=== PATIENT | female | born 1955 | race Caucasian/White ===

== ENCOUNTER 2019-11-24 09:25 | Emergency (ER) | payer BC, SELFPAY ==
[2019-11-24 09:33] VITALS: BP 149/85; PULSE 85; RESP 20; TEMP 36.7; O2SAT 95
--- NOTE | 2019-11-24 09:33 | W.ED.GENAD ---
Discharge Plan Disposition Patient Disposition: HOME Condition: Improving Discharge Details Chief Complaint: Abd Prob Clinical Impression: Cholelithiasis, Colitis Primary Care Provider: Kevin Roche ED Provider: Jany Hartman Home Meds and New Rx's Prescriptions: No Action No Known Home Meds RF: 0 Discharge Instructions Instructions: Biliary Colic (ED), Gallstones (ED), Colitis (ED) Additional Instructions: Drink plenty of fluids and get plenty of rest. Follow a diet of clear liquids and low-fat over the next 24 hours. Follow-up with your scheduled appointment with surgery office on November 27 at 1 PM. Follow-up with your primary care doctor for reevaluation and for referral for outpatient CT abdomen and pelvis in 12 months for reassessment of the right adrenal mass noted incidentally on your CT scan today. Return to the emergency department immediately if you develop any worsening or concerning symptoms such as fever, persistent vomiting, worsening abdominal pain or worsening rectal bleeding. Referrals: Liliana Amin MD [ [facility] STAFF PHYSICIAN] - Discharge Data Discharge Date/Time-TO BE ENTERED AT DEPARTURE: 11/24/19 13:43 Discharge Physician: Jany Hartman Medical Decision Making 0945 -- 64-year-old female with history of biliary colic presents for right upper quadrant abdominal pain and bright red rectal bleeding since this morning. Appears that possibly the bright red rectal bleeding may be unrelated to the right upper quadrant pain. She has significant right upper quadrant tenderness with positive Rowe sign. She appears uncomfortable but nontoxic. Rectal exam negative for any stool and guaiac negative. Differential diagnosis includes biliary colic, cholecystitis, colitis, diverticulitis, appendicitis. Will place an IV, bolus IV fluids, screening labs, CT abdomen pelvis and gallbladder ultrasound give a dose of morphine and Zofran and reassess. 1115 --patient reassessed -she states her pain is improved from 9 to a 6. She was offered additional pain medication but declined. Labs reviewed and unremarkable. Normal white blood cell count and liver enzymes and lipase. Patient has not yet gone to CT or ultrasound. 1300 --CT abdomen and pelvis notes findings possibly c/w colitis as well as gallbladder distension and pericholecystic fluid. US notes gallstones, possibly also in gallbladder neck. Patient reassessed -she states she feels much better. Case discussed with Dr. Amin who stated that patient would likely need elective cholecystectomy and can follow-up with her next week November 27 at 1 PM. Patient feels good to go home. She has had no further bowel movements and denies any dizziness. She was able to ambulate without any acute complaints. Discussed that it is possible that the hamburger she ate could have possibly caused colitis as well as biliary colic. We will send home with a few tabs of oxycodone per her request. She was also notified of the incidental right adrenal mass noted on CT and to follow-up with her PCP in [address] Usual and customary return precautions given prior to discharge. Medical Records Medical records reviewed: Yes I reviewed the patient's medical records. Imaging Data Radiologic Study: Radiologist's impression: US ABDOMEN LIMITED CLINICAL HISTORY: RUQ abd pain, r/o cholelithiasis/cholecystitis TECHNIQUE: Ultrasound performed using standard protocol. COMPARISON: CT CT ABDOMEN PELVIS W from 11/24/2019 FINDINGS: Ultrasound examination was performed utilizing right upper quadrant protocol. There are multiple gallstones. There is a positive sonographic Rowe sign. No gross gallbladder wall thickening or pericholecystic fluid collection seen. Common hepatic duct is of normal diameter at 5 millimeters. There is question of shadowing near the gallbladder neck, although I cannot identify a stone at this site the possibility of a gallbladder neck stone would have to be considered. IMPRESSION: Cholelithiasis is confirmed in patient with reported clinical findings suggesting cholecystitis. CT ABDOMEN PELVIS W CLINICAL HISTORY: RUQ abd pain, bright red rectal bleeding TECHNIQUE: CT examination of the abdomen and pelvis was performed with bolus infusion of 100 cc of Omnipaque 350. COMPARISON: No exams were available for comparison FINDINGS: Images obtained through the lung bases are unremarkable. Hepatic attenuation is heterogeneous. No focal hepatic mass identified although there are multiple small low-attenuation lesions too small to characterize but probably representing cysts. No intra or extrahepatic biliary dilatation. The gallbladder is distended and there is a pericholecystic fluid collection. The patient reportedly has clinically suspected cholecystitis. Pancreas is unremarkable in appearance and the pancreatic duct appears normal. Spleen is unremarkable. The IVC is distended, likely due to Valsalva maneuver. Adrenals are unremarkable except for an incidental 13 millimeter in diameter homogeneous right adrenal lesion measuring about 82 Hounsfield units mean attenuation, this is indeterminate although statistically likely benign. Follow-up abdominal CT suggested in 12 months to re-evaluate the right adrenal gland. Kidneys are unremarkable, no renal mass, hydronephrosis, or nephrolithiasis. Urinary bladder is unremarkable. No significant abdominal wall hernia seen. No significant abdominal or pelvic adenopathy. Appendix is normal. No evidence of diverticulitis. There is diffuse mild probable colonic wall thickening involving portions of transverse and descending colon, please correlate regarding the possibility of colitis, the patient reportedly has had recent rectal bleeding. Animal Nurse structures unremarkable for age. No free fluid in the pelvis IMPRESSION: Gallbladder distention and pericholecystic fluid collection, clinically there is reportedly a suspicion of cholecystitis, additional evaluation with right upper quadrant ultrasound recommended. Question colonic wall thickening involving portions of transverse and descending colon as well as sigmoid, please correlate regarding the possibility of colitis. Incidental adrenal 13 millimeter mass, 82 Hounsfield units mean attenuation, probably benign, follow-up abdominal CT recommended in 12 months. Lab Data Lab results reviewed: Yes I reviewed the patient's lab results. Labs: Laboratory Tests Range/Units 11/24/19 11/24/19 11/24/19 09:51 09:51 09:51 WBC (4.4-10.8) k/cumm 7.02 RBC (4.00-5.20) m/cumm 4.56 Hgb (12.0-15.5) g/dL 14.4 Hct (36.0-46.0) % 43.6 MCV (80-95) fL 95.6 H MCH (27.0-33.0) pg 31.6 MCHC (32.0-36.0) g/dL 33.0 RDW (11.7-14.6) % 12.3 Plt Count (130-400) x1000/uL 221 MPV (8.0-11.0) fL 10.1 Immature Gran % % 0.1 Neutrophils % 74.4 Lymphocytes % 15.2 Monocytes % 8.7 Eosinophils % 1.0 Basophils % 0.6 Absolute Neutrophils (1.2-6.7) k/cumm 5.22 Absolute Lymphocytes (1.2-3.4) k/cumm 1.07 L Absolute Monocytes (0.11-0.7) k/cumm 0.61 Absolute Eosinophils (0.0-0.7) k/cumm 0.07 Absolute Basophils (0.0-0.2) k/cumm 0.04 Sodium (136-145) mmol/L 139 Potassium (3.5-5.1) mmol/L 3.6 Chloride (98-107) mmol/L 104 Carbon Dioxide (21.0-32.0) mmol/L 28.6 Anion Gap (3-11) mmol/L 6.4 BUN (7-18) mg/dL 14 Creatinine (0.55-1.02) mg/dL 0.78 Estimated GFR/1.73 m2 (mL/min/1.73m2) >= 60.00 Glucose (74-106) mg/dL 112 H Calcium (8.5-10.1) mg/dL 9.6 Total Bilirubin (0.2-1.0) mg/dL 0.6 AST (15-37) U/L 15 ALT (14-59) U/L 25 Alkaline Phosphatase (46-116) U/L 63 Total Protein (6.4-8.2) g/dL 7.8 Albumin (3.4-5.0) g/dL 4.5 Lipase (73-393) U/L 123 HPI General Mode of arrival: ambulatory. Date/Time Provider Initiated Documentation: 11/24/19 09:27. Limitations to Documentation: no limitations. Information obtained by: patient. HPI Narrative: Patient is a 64-year-old female with a history of cholelithiasis who presents with right upper quadrant abdominal pain and bright red rectal bleeding since this morning. Patient states the sharp constant right upper quadrant abdominal pain started this morning and then a couple hours later started with bright red blood in her stool. She states she initially had a formed brown-colored stool with specks of bright red blood then had a second watery stool with large amounts of bright red blood. She states her abdominal pain feels similar to previous and she has had with a gallbladder attack. She denies any fever, nausea, vomiting, urinary symptoms, recent travel, cough, chest pain, shortness of breath. She has not taken any medication for pain. Related Data Home Medications Medication Instructions Recorded Confirmed Unknown [No Known Home Meds] 11/24/19 11/24/19 Allergies Allergy/AdvReac Type Severity Reaction Status Date / Time No Known Allergies Allergy Unverified 11/24/19 10:27 Review of Systems All systems reviewed & are unremarkable except as noted in HPI and below Constitutional Constitutional: Reports as per HPI, Denies chills and Denies fever(s) Eyes Eyes: Denies blurry vision ENT Ears, Nose, Mouth, and Throat: Denies dizziness, Denies sore throat and Denies throat swelling Cardiovascular Cardiovascular: Denies chest pain and Denies dyspnea Respiratory Respiratory: Denies cough and Denies dyspnea Gastrointestinal Gastrointestinal: Reports abdominal pain, Denies diarrhea and Denies vomiting Genitourinary Genitourinary: Denies hematuria and Denies dysuria Musculoskeletal Musculoskeletal: Denies back pain and Denies numbness Integumentary/Breasts Skin/Breast: Denies lesions and Denies rash Neurologic Neurologic: Denies dizziness, Denies localized weakness and Denies numbness Allergic/Immunologic Allergic/Immunologic: Denies throat swelling [facility] Medical History (Updated 11/24/19 @ 13:25 by Jany Hartman DO) Cholelithiasis (Acute) Surgical History (Updated 11/24/19 @ 10:12 by Jany Hartman DO) No significant past surgical history (Acute) Social History (Updated 11/24/19 @ 10:13 by Jany Hartman DO) Smoking/Tobacco Use Status: Never Alcohol Intake: current Alcohol Intake frequency: holidays/special occasions only Drug use: Never Substance use type: does not use Do you feel safe at home: Yes Do you feel safe in your relationship?: Yes Exam Const General: cooperative, healthy appearing and uncomfortable Orientation: alert, awake and oriented x3 HENMT Head: normal to inspection Face and sinus: normal facial exam Eyes General: appearance normal, both eyes and all related structures EOM: EOM intact bilaterally Neck Neck: normal visual inspection and No submandibular swelling Lymphatic: no lymphadenopathy noted Chest Chest: normal inspection of the chest and no tenderness Resp Effort & Inspection: normal respiratory effort and able to speak in complete sentences Auscultation: clear to auscultation bilaterally Cardio Rate: regular rate Rhythm: regular rhythm GI Inspection: normal to inspection Palpation: soft, not firm, not rigid and tender in the RUQ Auscultation: normal bowel sounds Rectal Exam - female: visual inspection normal, normal sphincter tone and heme negative stool Back/Spine/Pelvis Thoracic/Lumbar Spine: thoracic and lumbar spine normal to inspection Skin General skin exam: no rashes or lesions noted Neuro General: patient alert, patient awake and patient oriented x3 Cognition: normal cognition Speech: speech normal Motor: muscle tone normal throughout Sensory Exam: no sensory deficits noted Extrem General: normal to inspection, full ROM, capillary refill normal, no calf tenderness bilaterally and no edema Psych Appearance: grossly normal Mental Status: mental status grossly normal Speech and Movement: speech and movement normal Affect: normal affect
--- NOTE | 2019-11-24 09:45 | DI.CT_ITS ---
EXAM: CT ABDOMEN PELVIS W CLINICAL HISTORY: RUQ abd pain, bright red rectal bleeding TECHNIQUE: CT examination of the abdomen and pelvis was performed with bolus infusion of 100 cc of O mnipaque 350. COMPARISON: No exams were available for comparison FINDINGS: Images obtained through the lung bases are unremarkable. Hepatic attenuation is heterogeneous. No focal hepatic mass identified although there are multiple s mall low-attenuation lesions too small to characterize but probably representing cysts. No intra or extrahepatic biliary dilatation. The gallbladder is distended and there is a pericholecystic fluid c ollection. The patient reportedly has clinically suspected cholecystitis. Pancreas is unremarkable in appearance and the pancreatic duct appears normal. Spleen is unremarkabl e. The IVC is distended, likely due to Valsalva maneuver. Adrenals are unremarkable except for an incidental 13 millimeter in diameter homogeneous right adrena l lesion measuring about 82 Hounsfield units mean attenuation, this is indeterminate although statist ically likely benign. Follow-up abdominal CT suggested in 12 months to re-evaluate the right adrenal gland. Kidneys are unremarkable, no renal mass, hydronephrosis, or nephrolithiasis. Urinary bladder is unre markable. No significant abdominal wall hernia seen. No significant abdominal or pelvic adenopathy. Appendix is normal. No evidence of diverticulitis. There is diffuse mild probable colonic wall thickening involving portions of transverse and descendin g colon, please correlate regarding the possibility of colitis, the patient reportedly has had recent rectal bleeding. Education Trainer structures unremarkable for age. No free fluid in the pelvis IMPRESSION: Gallbladder distention and pericholecystic fluid collection, clinically there is reportedly a suspici on of cholecystitis, additional evaluation with right upper quadrant ultrasound recommended. Question colonic wall thickening involving portions of transverse and descending colon as well as sig moid, please correlate regarding the possibility of colitis. Incidental adrenal 13 millimeter mass, 82 Hounsfield units mean attenuation, probably benign, follow- up abdominal CT recommended in 12 months.
--- NOTE | 2019-11-24 09:45 | DI.US_ITS ---
EXAM: US ABDOMEN LIMITED CLINICAL HISTORY: RUQ abd pain, r/o cholelithiasis/cholecystitis TECHNIQUE: Ultrasound performed using standard protocol. COMPARISON: CT CT ABDOMEN PELVIS W from 11/24/2019 FINDINGS: Ultrasound examination was performed utilizing right upper quadrant protocol. There are multiple gal lstones. There is a positive sonographic Rowe sign. No gross gallbladder wall thickening or peric holecystic fluid collection seen. Common hepatic duct is of normal diameter at 5 millimeters. There is question of shadowing near the gallbladder neck, although I cannot identify a stone at this site the possibility of a gallbladder neck stone would have to be considered. IMPRESSION: Cholelithiasis is confirmed in patient with reported clinical findings suggesting cholecystitis. DATA REPOSITORY:
[2019-11-24 10:09] LABS: Abs Immature Grans 0.01 k/cumm (0.0-0.09); Absolute Basophil Count 0.04 k/cumm (0.0-0.2); Absolute Eosinophil Count 0.07 k/cumm (0.0-0.7); Absolute Lymphocyte Count 1.07 k/cumm (1.2-3.4); Absolute Monocyte Count 0.61 k/cumm (0.11-0.7); Absolute Neutrophil Count 5.22 k/cumm (1.2-6.7); Basophils % 0.6; HCT 43.6 % (36.0-46.0); HGB 14.4 g/dL (12.0-15.5); Immature Grans % 0.1 %; Lymphocytes % 15.2; Mean Corpuscular Hemoglobin 31.6 pg (27.0-33.0); Mean Corpuscular Volume 95.6 fL (80-95); Mean Platelet Volume 10.1 fL (8.0-11.0); Monocytes % 8.7; Neutrophils % 74.4; Platelet Count 221 x1000/uL (130-400); RBC 4.56 m/cumm (4.00-5.20); RBC Distribution Width 12.3 % (11.7-14.6); White Blood Cell Count 7.02 k/cumm (4.4-10.8)
[2019-11-24 10:20] LABS: Lipase 123 U/L (73-393)
[2019-11-24] MEDS: Ondansetron 4 MG/2 ML VIAL IVP (10:24)
[2019-11-24] MEDS: Normal Saline 1,000 ML 1000 ML IV (10:24)
[2019-11-24 10:25] LABS: ALT 25 U/L (14-59); AST 15 U/L (15-37); Albumin 4.5 g/dL (3.4-5.0); Alkaline Phosphatase 63 U/L (46-116); Anion Gap 6.4 mmol/L (3-11); BUN 14 mg/dL (7-18); Bilirubin, Total 0.6 mg/dL (0.2-1.0); CO2 28.6 mmol/L (21.0-32.0); CREATININE 0.78 mg/dL (0.55-1.02); Calcium 9.6 mg/dL (8.5-10.1); Chloride 104 mmol/L (98-107); Glucose 112 mg/dL (74-106); Potassium 3.6 mmol/L (3.5-5.1); Sodium 139 mmol/L (136-145); Total Protein 7.8 g/dL (6.4-8.2)
[2019-11-24 11:45] VITALS: BP 137/74; PULSE 71; RESP 20; TEMP 36.6; O2SAT 99
[2019-11-24] MEDS: Omnipaque 350 MG/ML 100 ML BTL IJ (11:54)
[2019-11-24] MEDS: Normal Saline Flush 10 ML SYR IVP (11:59)
[2019-11-24] MEDS: Normal Saline - Diluent 50 ML VIAL IV (11:59)
[2019-11-24 13:39] VITALS: BP 124/76; PULSE 71; RESP 16; TEMP 36.6; O2SAT 97
== END 2019-11-24 13:43 | disposition home or self-care (01) ==
PROVIDERS: Emergency Provider Physician Assistant; PCP Naturopath
DX: K80.00 Calculus of gallbladder with acute cholecystitis without obstruction (principal); K52.9 Noninfective gastroenteritis and colitis, unspecified; K62.5 Hemorrhage of anus and rectum
CPT/HCPCS: 36415; 80053; 83690; 96361; 96374; 96375; 99285; 74177; 76705; 85025; J2405; J3490

== ENCOUNTER 2024-08-02 15:16 | Outpatient (CLI) | payer MEDICARE, BC, SELFPAY ==
--- NOTE | 2024-08-02 14:45 | DI.RAD_ITS ---
Exam(s) XR CHEST 2V PA LATERAL EXAM: XR CHEST 2V PA LATERAL CLINICAL HISTORY: cough, r/o pneumonia, R05.9. TECHNIQUE: 2D digital imaging was performed. COMPARISON: CT CT ABDOMEN PELVIS W from 11/24/2019 FINDINGS: 2 views: Heart size is normal. The mediastinum is not widened. Right lung is clear. There is slightly increased markings left lower lobe retrocardiac region, possibly just vascular. No pleural effusions. IMPRESSION: Mildly increased markings in the left lower lobe retrocardiac region. Cannot exclude mild infiltrate at this level. There are no pleural effusions DATA REPOSITORY: RADIATION DOSE DELIVERED:
== END 2024-08-02 15:36 ==
PROVIDERS: PCP Naturopath; Visit Provider Physician Assistant
DX: R91.8 Other nonspecific abnormal finding of lung field (principal)
CPT/HCPCS: 71046

== ENCOUNTER 2025-02-19 05:01 | Emergency (ER) | payer MEDICARE, BC, SELFPAY ==
[2025-02-19] VITALS (31 sets, daily range): BP systolic 99–156; BP diastolic 48–84; PULSE 62–84; RESP 18; O2SAT 94–99
--- NOTE | 2025-02-19 05:19 | ED.GENADUL_ITS ---
Discharge Plan Disposition Patient Disposition: Home Condition: Improving Discharge Details Clinical Impression: Celiac disease, Abdominal pain, vomiting, and diarrhea Primary Care Provider: Kevin Roche ED Provider: Sybil Hoffmann Home Meds and New Rx's Prescriptions: New prochlorperazine maleate [Compazine] 10 mg tablet 10 mg PO TID PRNQty: 10 0RF hyoscyamine sulfate [Levsin/SL] 0.125 mg tablet, sublingual 0.125 mg sublingual BID-QID PRN (Reason: abdominal pain) Qty: 10 0RF No Action albuterol sulfate 90 mcg/actuation HFA aerosol inhaler 2 puff inhalation Q6H PRN (Reason: shortness of breath or wheezing) Qty: 8.5 0RF albuterol sulfate 2.5 mg /3 mL (0.083 %) solution for nebulization 2.5 mg inhalation Q6H PRN (Reason: shortness of breath or wheezing) Qty: 180 0RF ascorbic acid (vitamin C) 1,000 mg tablet 1 gm PO Q6H cholecalciferol (vitamin D3) 250 mcg (10,000 unit) capsule 250 mcg PO DAILY magnesium 30 mg tablet 30 mg PO DAILY iodine 150 mcg tablet PO Vitamin B-12 1,000 mcg/mL drops 1 ml PO DAILY lutein 20 mg capsule 20 mg PO DAILY Rx Instructions: give with meal/snack Discharge Instructions Instructions: Nausea and Vomiting, Adult ED Additional Instructions: You were seen in the ED for vomiting, diarrhea, diffuse abdominal pain likely related to inadvertent gluten ingestion. You improved with fluids and medications. Your laboratory studies are otherwise reassuring. Prescriptions for medication to help with abdominal cramping and vomiting were sent to your pharmacy. Would rest and maintain a clear liquid diet for today. Follow-up with primary care later this week if not improving. Return to ED for continued persistent vomiting, worsening abdominal pain, fever, bloody diarrhea, other concerns. Discharge Data Discharge Date/Time-TO BE ENTERED AT DEPARTURE: 02/19/25 09:33 HPI <Minor Peters MD - Last Filed: 02/19/25 23:14> General Mode of arrival: ambulatory . Date/Time Provider Initiated Documentation: 02/19/25 05:19 . Limitations to Documentation: no limitations . Information obtained by: patient, RN notes reviewed and old records reviewed . HPI Narrative: Patient presents to ED with abdominal pain and cramping, vomiting, diarrhea overnight. Patient is celiac and thinks she inadvertently ingested gluten at a [employer] buffet yesterday. She began having symptoms in the late evening. Presentation is similar to previous episodes that she has had before she determined she was celiac. She denies any fever. Pain is described as generalized and cramping, sharp and changes in intensity. She has had persistent vomiting and diarrhea and has not really been able to keep anything down. Denies any chest pain, shortness of breath. Denies any blood in her vomit or her diarrhea. Related Data Home Medications ?Medication ?Instructions ?Recorded ?Confirmed ascorbic acid (vitamin C) 1,000 mg 1 gm PO Q6H 0 08/02/24 tablet cholecalciferol (vitamin D3) 250 250 mcg PO DAILY 03/1008/02/24 mcg (10,000 unit) capsule cyanocobalamin (vitamin B-12) 1 ml PO DAILY 11/28/19 0 08/02/24 1,000 mcg/mL oral drops (Vitamin B-12) iodine 150 mcg tablet mcg PO 11/28/19 08/02/24 lutein 20 mg capsule 20 mg PO DAILY 11/28/1907/22 magnesium 30 mg tablet 30 mg PO DAILY 11/28/1907/22 albuterol sulfate 2.5 mg/3 mL 2.5 mg (3 mL) inhalation Q6H PRN 08/02/24 08/02/24 (0.083 %) solution for nebulization shortness of breat h or wheezing #180 mL albuterol sulfate 90 mcg/actuation 2 puff inhalation Q 6H PRN 08/02/24 08/02/24 aerosol inhaler shortness of breath or wheez ing #8.5 grams hyoscyamine sulfate 0.125 mg 0.125 mg sublingual BID-Q ID PRN 02/19/25 sublingual tablet (Levsin/SL) abdominal pain #10 tabs prochlorperazine maleate 10 mg 10 mg PO TID PRN #10 ta bs 02/19/25 tablet (Compazine) Previous Rx's ?Medication ?Instructions ?Recorded albuterol sulfate 2.5 mg/3 mL 2.5 mg (3 mL) inhalation Q6H PRN 08/02/24 (0.083 %) solution for nebulization shortness of breat h or wheezing #180 mL albuterol sulfate 90 mcg/actuation 2 puff inhalation Q 6H PRN 08/02/24 aerosol inhaler shortness of breath or wheez ing #8.5 grams hyoscyamine sulfate 0.125 mg 0.125 mg sublingual BID-Q ID PRN 02/19/25 sublingual tablet (Levsin/SL) abdominal pain #10 tabs prochlorperazine maleate 10 mg 10 mg PO TID PRN #10 ta bs 02/19/25 tablet (Compazine) Allergies Allergy/AdvReac Type Severity Reaction Status Date / Time gluten Allergy Severe GI upset Verified 08/02/24 13:39 and severe pain General Stated Complaint: Abd Prob EMMA: 3 Exam <Minor Peters MD - Last Filed: 02/19/25 23:14> Narrative Exam Narrative: Const: WDWN female appears uncomfortable. VS per triage. HEENT: NC/AT. Normal facial exam. Neck: Supple. Trachea midline. Lungs: Normal respiratory effort. Lungs are clear. Cor: RRR without murmur. Good radial pulses. GI: Soft/ND. Diffusedly mildly tender throughout. Neuro: A+O x 3. Normal speech, mentation. Cranial nerves II - XII grossly intact. No gross motor or sensory deficit. Course <Minor Peters MD - Last Filed: 02/19/25 23:14> Vital Signs Vital signs: Vital Signs Pulse 76 02/19/25 05:10 Respiratory Rate 18 02/19/25 05:10 Blood Pressure 156/84 H 02/19/25 05:10 Pulse Oximetry 99 02/19/25 05:10 Temperature Source Oral 02/19/25 05:10 Pulse 76 02/19/25 05:10 Respiratory Rate 18 02/19/25 05:10 Blood Pressure 156/84 H 02/19/25 05:10 Blood Pressure Position Sitting 02/19/25 05:10 Pulse Oximetry 99 02/19/25 05:10 Oxygen Delivery Method Room Air 02/19/25 05:10 Oxygen Flow Rate 0 02/19/25 05:10 Pain Level 9 02/19/25 05:10 Medical Decision Making <Minor Peters MD - Last Filed: 09/01/25 23:14> Patient presenting to ED with abdominal pain and cramping, vomiting and diarrhea likely related to inadvertent gluten ingestion the day before. She appears uncomfortable and reports vomiting and diarrhea all night. Pain is cramping, sharp, changes in intensity. She is mildly tender throughout but no focal guarding or rebound. Will place IV, hydrate, check abdominal labs and provide ketorolac, prochlorperazine, Levsin for symptoms. Patient's laboratory studies are fine. She has a normal white count, electrolytes, liver function and kidney function. She is already feeling much improved after just a liter of fluid. Will plan to give second liter and p.o. challenge. If tolerates can be discharged home with prescriptions for prochlorperazine and Levsin if needed. Patient be signed out to LM Hoffmann pending discharge. [facility]: Care is accepted in transition at 8 AM pending p.o. challenge repeat assessment. At this time patient is feeling marked improvement in symptoms. She tolerates p.o. challenge patient's labs and vitals are stable. She is requesting discharge home and able to tolerate p.o. challenge and at time of discharge home discharged with antiemetics in stable condition Lab Data Lab results reviewed: Yes I reviewed the patient's lab results. Lab results narrative: see MDM <LM Taylor - Last Filed: 02/19/25 16:10> LB: Care is accepted in transition at 8 AM pending p.o. challenge repeat assessment. At this time patient is feeling marked improvement in symptoms. She tolerates p.o. challenge patient's labs and vitals are stable. She is requesting discharge home and able to tolerate p.o. challenge and at time of discharge home discharged with antiemetics in stable condition [facility] <Minor Peters MD - Last Filed: 02/19/25 23:14> All Active Problems (Updated 02/19/25 @ 07:51 by Minor Peters MD) Abdominal pain, vomiting, and diarrhea (Acute) Celiac disease (Acute) Right adrenal mass (Acute) Biliary colic (Acute) Medical History (Updated 02/19/25 @ 07:51 by Minor Peters MD) Cholelithiasis Surgical History No significant past surgical history Social History Smoking/Tobacco Use Status: Never Smoking risk assessment performed?: Yes Alcohol Intake: current Alcohol Intake frequency: holidays/special occasions only Drug use: Never Substance use type: does not use Current gender identity: female Do you feel safe at home: Yes Do you feel safe in your relationship?: Yes
[2025-02-19] MEDS: Prochlorperazine 10 MG/2 ML VIAL IVP (05:49)
[2025-02-19] MEDS: Ketorolac 15 MG/ML VIAL IVP (05:50)
[2025-02-19] MEDS: Normal Saline 1,000 ML 1000 ML IV ×2 (05:50→07:05)
[2025-02-19 05:51] LABS: Abs Immature Grans 0.02 10^3/uL (0.0-0.06); HCT 40.5 % (36.0-46.0); HGB 13.4 g/dL (11.2-15.7); Immature Grans % 0.2 %; MCH 30.6 pg (27.0-33.0); MCHC 33.1 % (32.0-36.0); MCV 93 fL (80-95); MPV 10.4 fL (8.0-11.0); Platelet Count 209 10^3/uL (130-400); RBC 4.38 10^6/uL (3.93-5.22); RDW 11.9 % (11.7-14.6); RDW-SD 40.9 fL; WBC 9.91 10^3/uL (4.4-10.8)
[2025-02-19] MEDS: Hyoscyamine 0.125 MG SL/ORAL/CHEW SL (06:04)
[2025-02-19 06:12] LABS: ALT 22 U/L (14-59); AST 17 U/L (15-37); Albumin 4.0 g/dL (3.4-5.0); Alkaline Phosphatase 83 U/L (46-116); Anion Gap 6.2 mmol/L (3-11); BUN 10 mg/dL (7-18); Bilirubin, Total 0.6 mg/dL (0.2-1.0); CO2 31.8 mmol/L (21.0-32.0); Calcium 9.0 mg/dL (8.5-10.1); Chloride 101 mmol/L (98-107); Estimated GFR 97.71 (mL/min/1.73m2); Glucose 151 mg/dL (74-106); Lipase 18 U/L (<78); Potassium 3.7 mmol/L (3.5-5.1); Sodium 139 mmol/L (136-145); Total Protein 7.4 g/dL (6.4-8.2)
[2025-02-19 09:33] LABS: Glucose Negative (Negative)
[2025-02-19 09:50] LABS: C & S Indicated? No; WBC 0-2 HPF (0-5)
== END 2025-02-19 09:33 | disposition home or self-care (01) ==
PROVIDERS: Emergency Medicine; Emergency Provider Physician Assistant; PCP Naturopath
DX: K90.0 Celiac disease (principal); R10.9 Unspecified abdominal pain; R11.10 Vomiting, unspecified; R19.7 Diarrhea, unspecified
CPT/HCPCS: 36415; 80053; 83690; 96361; 96374; 96375; 99285; 81003; 81015; 83605; 85025; 99284; J0780; J1885; J3490

== ENCOUNTER 2025-03-01 02:52 | Outpatient (CLI) | payer MEDICARE, BC, SELFPAY ==
--- NOTE | 2025-03-01 | DI.CT_ITS ---
Exam(s) CT ABDOMEN WO/W EXAM: CT ABDOMEN WO/W CLINICAL HISTORY: RT ADRENAL MASS,E27.8. TECHNIQUE: Imaging Protocol: Axial computed tomography images with coronal and sagittal reformatted images were created and reviewed CONTRAST MATERIAL: Intravenous: Omnipaque-350; 75cc Oral: None COMPARISON: CT CT ABDOMEN PELVIS W from 11/24/2019 FINDINGS: VISUALIZED LUNG BASES: No nodules nor pleural effusions evident. ABDOMEN: There is no ascites. LIVER: There few small focal hypodensities in the liver, the largest measuring 9 mm. These have the appearance of benign cysts no dilated intrahepatic ducts. GALLBLADDER/BILIARY: The gallbladder is abnormal. There are multiple gas containing gallstones noted in the gallbladder lumen in the gallbladder lumen is diffusely thickened throughout the entire gallbladder with wall thickness measuring up to 9-10 mm. There is no pericholecystic fluid. CBD diameter is slightly increased measuring 8-9 mm. There are no radiopaque calculi seen in the CBD. PANCREAS: No evidence of pancreatic mass nor dilatation of the pancreatic duct. SPLEEN: Spleen is not enlarged. No obvious intrasplenic lesions. Splenic and portal veins are patent. ADRENALS: Left adrenal gland unremarkable. There is an oval nodule again noted in the lateral limb of the right adrenal gland which measures 2 x 1.6 cm, exhibiting minimal if any significant increase in size from CT scan of 5 years ago and on the noninfused study exhibits density in its averaging 10 HU.. This is probably a benign adenoma. KIDNEYS:No cysts evident. No solid renal masses. No calculi nor hydronephrosis.. ABDOMINAL AORTA: Abdominal aorta is not enlarged. LYMPH NODES:There is no retroperitoneal nor paraaortic adenopathy. ABDOMINAL WALL: No evidence of anterior abdominal wall at and above the umbilical level. GI: There is no evidence of bowel obstruction, free air, nor abscess. OSSEOUS: No fractures and no significant osseous lesions. IMPRESSION: 1. Compared to the prior CT scan of November 2019 there is again noted a right adrenal nodule which presently measures 2 x 1.6 cm, exhibiting minimal if any significant increased in size from 5 years ago and therefore most probably benign adenoma. The opposite-left adrenal gland remains unremarkable. 2. The gallbladder has significant abnormal appearance. It exhibits appearance of acute cholecystitis on the CT scan of November 2019 presently it contains multiple calculi and with advanced relatively uniform gallbladder wall thickening. 3. There are few small benign-appearing hypodensities in the liver measuring up to 1 cm. These are probably benign cysts. RADIATION DOSE DELIVERED: 661.35mGy.cm Total DLP DATA REPOSITORY: All CT scans at this facility are submitted to the National Radiology Data Registry (NRDR) Dose Index Registry (DIR) with the [employer] ([employer]). RADIATION OPTIMIZATION: All CT scans at this facility use at least one of these dose optimization techniques: automated exposure control; mA and/or kV adjustment per patient size (includes targeted exams where dose is matched to clinical indication); or iterative reconstruction.
[2025-03-01] MEDS: Normal Saline - Diluent 50 ML VIAL IJ (08:25)
[2025-03-01] MEDS: Normal Saline Flush 10 ML SYR IVP (08:25)
[2025-03-01] MEDS: Omnipaque 350 MG/ML 500 ML BTL-Imaging package IJ (08:26)
== END 2025-03-01 03:12 ==
LOC: DI 02:53
PROVIDERS: PCP Nurse Practitioner Family; Visit Provider Nurse Practitioner Family
DX: E27.8 Other specified disorders of adrenal gland (principal)
CPT/HCPCS: 74170

== ENCOUNTER 2025-05-08 12:32 | Outpatient (REF) | payer MEDICARE, BC, SELFPAY ==
[2025-05-08 16:12] LABS: Hemoglobin A1C 5.3 % (<5.7)
[2025-05-08 16:31] LABS: TSH (W/Ref FT4) 1.95 uIU/mL (0.55-4.78)
[2025-05-08 16:43] LABS: ALT 19 U/L (10-49); AST 23 U/L (<34); Albumin 4.2 g/dL (3.4-5.0); Alkaline Phosphatase 97 U/L (46-116); Anion Gap 8.7 mmol/L (3-11); BUN 11 mg/dL (9-23); Bilirubin, Total 1.20 mg/dL (0.2-1.2); CO2 26.3 mmol/L (20.0-31.0); Calcium 9.6 mg/dL (8.3-10.6); Chloride 108 mmol/L (98-107); Cholesterol 217 mg/dL (<200); Glucose 86 mg/dL (74-106); HDL Cholesterol 78 mg/dL (>40); Potassium 4.3 mmol/L (3.5-5.1); Sodium 143 mmol/L (136-145); Total Protein 6.8 g/dL (5.7-8.2)
== END 2025-05-08 12:33 | disposition home or self-care (01) ==
LOC: NCHCN 12:32
PROVIDERS: PCP Nurse Practitioner Family; Visit Provider Nurse Practitioner Family
DX: R07.89 Other chest pain (principal); Z13.220 Encounter for screening for lipoid disorders; Z13.1 Encounter for screening for diabetes mellitus
CPT/HCPCS: 80053; 80061; 83036; 84443